=== PATIENT | female | born 1970 | race Caucasian/White ===

== ENCOUNTER 2020-06-26 15:37 | Emergency (ER) | payer MEDICAID ==
[~2020-06-26] VITALS: Ht 152.4 cm; Wt 93.2 kg
[2020-06-26 15:47] VITALS: TEMP 98.4
[2020-06-26] MEDS ORDERED: NORCO 325 MG-51 TAB PO (16:15)
[2020-06-26] MEDS ORDERED: NORFLEX 10100 MG/TAB PO (16:15)
[2020-06-26 16:50] VITALS: BP 175/90; PULSE 91
== END 2020-06-26 16:49 | disposition home or self-care (01) ==
LOC: COL.ER 15:37
DX: S39.012A Strain of muscle, fascia and tendon of lower back, initial encounter (principal); M54.17 Radiculopathy, lumbosacral region; I10 Essential (primary) hypertension; W17.89XA Other fall from one level to another, initial encounter
CPT/HCPCS: J1885; J2360

== ENCOUNTER → 2021-05-09 | Outpatient (CLI) | payer MEDICAID ==
[~2021-05-09] MED LIST: NORCO 325 MG-51 TAB PO; NORFLEX 10100 MG/TAB PO
== END ==
LOC: MC.RAD 04-29 13:00
DX: Z12.31 Encounter for screening mammogram for malignant neoplasm of breast (principal)